=== PATIENT | male | born 1940 | race Caucasian/White ===

== ENCOUNTER 2019-07-19 08:23 | Outpatient (CLI) | payer MEDICARE, SELFPAY ==
--- NOTE | 2019-07-19 | USCV_ITS ---
Bertram Moiz Age: 79 Gender: M : 1940 Exam Date: 07/19/2019 08:42 Ordering Phys: Dominic Stone PA-C Technologist: Yoli Kate Exam Location: [facility] – [place] Indication: D-DIMER ELEVATION HISTORY: D-dimer elevation. PROCEDURES: Examined were the right greater saphenous, common femoral, femoral, profunda, popliteal, posterior tibial veins, and peroneal trunk.. FINDINGS: All veins examined appear free of thrombus. No filling defects on color Doppler flow analysis. Vein flow and caliber vary with respiration. Increase in venous flow with augmentation. All veins appear compressible.. CONCLUSIONS No evidence of right lower extremity DVT. Rishi Reeves MD (Electronically Signed) Final Date: 19 July 2019 10:46 S
== END 2019-07-19 08:24 | disposition home or self-care (01) ==
LOC: RADWPI 08:31
PROVIDERS: PCP Physician Assistant; Visit Provider Physician Assistant
DX: R79.89 Other specified abnormal findings of blood chemistry (principal)
CPT/HCPCS: 93971

== ENCOUNTER 2021-07-01 19:31 | Emergency (ER) | payer MEDICARE, SELFPAY ==
[2021-07-01 19:33] VITALS: BP 205/108; PULSE 78; RESP 25; O2SAT 97
--- NOTE | 2021-07-01 19:35 | CTR_ITS ---
PROCEDURE INFORMATION: Exam: CT Head Without Contrast Exam date and time: 07/01/2021 7:59 PM Age: 80 years old Clinical indication: Altered mental status/memory loss; Additional info: AMS TECHNIQUE: Imaging protocol: Computed tomography of the head without contrast. Radiation optimization: All CT scans at this facility use at least one of these dose optimization techniques: automated exposure control; mA and/or kV adjustment per patient size (includes targeted exams where dose is matched to clinical indication); or iterative reconstruction. COMPARISON: CT head wo con* [id number] 01/09/2018 10:46 AM RADIATION DOSE METRICS: Total DLP (mGy-cm): 763.68 FINDINGS: Brain: There is hypoattenuation in the periventricular and subcortical white matter consistent with chronic microvascular disease. There is no significant mass effect or midline shift. There is no acute intracranial hemorrhage. Cerebral ventricles: There is no significant ventricular dilation. The basal cisterns are unremarkable. Paranasal sinuses: The paranasal sinuses are clear. Mastoid air cells: The mastoid air cells are clear. Bones/joints: The calvarium is intact. Soft tissues: The visible extracranial soft tissues are unremarkable. CT/CT head wo con* [id number] IMPRESSION: No acute intracranial abnormality.
--- NOTE | 2021-07-01 19:35 | XRR_ITS ---
PROCEDURE INFORMATION: Exam: XR Chest Exam date and time: 07/01/2021 7:52 PM Age: 80 years old Clinical indication: Shortness of breath; Additional info: AMS TECHNIQUE: Imaging protocol: XR of the chest. Views: 1 view. COMPARISON: CR Chest 1 [place] [id number] 01/09/2018 10:47 AM FINDINGS: Lungs: Unremarkable. No consolidation. Pleural spaces: Unremarkable. No pleural effusion. No pneumothorax. Heart/Mediastinum: Cardiomegaly. Bones/joints: Unremarkable. XR/XR chest 1V portable [id number] IMPRESSION: 1. Negative for infiltrate. 2. Cardiomegaly.
--- NOTE | 2021-07-01 19:37 | ECG_ITS ---
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 Measurements Intervals [place] Rate: 64 P: 58 IA: 161 QRS: -6 QRSD: 100 T: 56 QT: 436 QTc: 452 Interpretive Statements SINUS RHYTHM NONSPECIFIC T-WAVE ABNORMALITY No previous ECG available for comparison Electronically Signed On 07-02-2021 17:05:14 CDT by Oneal Alcala M.D. [id number]
--- NOTE | 2021-07-01 19:41 | W.ED.AMS ---
HPI - Altered Mental Status General: Chief Complaint: Altered Mental Status Stated Complaint: ALOC Time Seen by Provider: 07/01/21 19:32 Source: patient and EMS Mode of arrival: EMS Limitations: altered mental status History of Present Illness: 80-year-old male who is here by EMS. Family found him down on the ground roughly 30 minutes ago completely altered. Unsure when his last known normal was. He does have a history of diabetes and MS states his original sugar was 65 they gave him 25 IV a glucose is 120 and he is coming around more. He is able answer my questions he knows know the year and his name still is quite lethargic and has some confusion no definite focal deficits noted. No known recent illness. Review of Systems General: Reports: ROS unobtainable due to mental status Physical Exam Const: EXAM LIMITATIONS: altered mental status GENERAL APPEARANCE: lethargic and ill appearing ORIENTATION/CONSCIOUSNESS: Yes lethargic HENMT: COMMON NORMALS: normocephalic and atraumatic HEAD & SCALP: normocephalic and atraumatic FACE & SINUS: normal facial exam Eye: COMMON NORMALS: Equal, round and reactive pupils present and EOMs intact bilaterally PUPIL: Yes Equal, round and reactive pupils present Neck/C-Spine: COMMON NORMALS: full ROM and supple Chest: COMMONS NORMALS: normal inspection of the chest and normal palpation of entire chest wall Resp: COMMON NORMALS: normal respiratory effort Cardio: COMMON NORMALS: regular rate and regular rhythm RATE: regular rate RHYTHM: regular rhythm GI: COMMON NORMALS: Normal to inspection, nondistended, normoactive bowel sounds present, Soft to palpation and non-tender PALPATION: Yes Soft to palpation Extremity: COMMON NORMALS: normal to inspection and full ROM Neuro: SENSORIUM/ORIENTATION: Yes lethargic CRANIAL NERVES: Yes CN normal except as noted Psych: APPEARANCE: Yes disheveled OTHER: confusion Skin: COMMON NORMALS: no rashes or lesions noted GENERAL SKIN EXAM: no rashes or lesions noted Course Vital Signs: Vital signs: Vital Signs Temperature 97.4 F L 07/01/21 20:30 Pulse Rate 78 07/01/21 20:30 Respiratory Rate 16 07/01/21 20:30 Blood Pressure 166/88 07/01/21 20:30 Pulse Oximetry 97 07/01/21 20:30 MDM - Altered Mental Status Medical Decision Making Patient presents with altered mental status likely from hypoglycemia he is now awake alert ambulatory answering all his questions appropriately. He had been requesting the nurse to be able to go home. I went spoke to him at length informed his lactate was a little elevated would like to rehydrate him and recheck it. He states he feels completely fine he wants to go home right now. He does have decision-making capacity we will discharge him at his wishes inform if he has any worsening he is return immediately I informed him he should stay with someone tonight and watch his glucose levels. He understands agrees to plan. Lab Data : 07/01/21 20:16 07/01/21 20:16 Radiology Impressions Chest X-Ray 07/01/21 19:35 IMPRESSION: 1. Negative for infiltrate. 2. Cardiomegaly. Head CT 07/01/21 19:35 IMPRESSION: No acute intracranial abnormality. Cervical Spine CT 07/01/21 19:54 IMPRESSION: No acute fracture. Laboratory Results WBC 11.8 10^3/uL (4.0-10.0) H 07/01/21 20:16 RBC 4.39 10^6/uL (4.1-5.3) 07/01/21 20:16 Hgb 12.4 g/dL (11.7-16.6) 07/01/21 20:16 Hct 38.5 % (42.0-52.0) L 07/01/21 20:16 MCV 87.7 fl (80-94) 07/01/21 20:16 MCH 28.2 pg (28.0-34.0) 07/01/21 20:16 MCHC 32.2 g/dL (30.0-36.0) 07/01/21 20:16 RDW 13.2 % (12.1-15.1) 07/01/21 20:16 Plt Count 185 10^3/cmm (130-400) 07/01/21 20:16 MPV 11.3 fL (7.4-10.4) H 07/01/21 20:16 Neut % (Auto) 83.3 % 07/01/21 20:16 Lymph % (Auto) 8.4 % 07/01/21 20:16 [place] % (Auto) 7.1 % 07/01/21 20:16 Eos % (Auto) 0.5 % 07/01/21 20:16 Baso % (Auto) 0.3 % 07/01/21 20:16 Neut # (Auto) 9.84 10^3/uL (1.8-7.7) H 07/01/21 20:16 Lymph # (Auto) 1.0 10^3/uL (0.8-4.8) 07/01/21 20:16 [place] # (Auto) 0.8 10^3/uL (0.2-0.9) 07/01/21 20:16 Eos # (Auto) 0.1 10^3/uL (0.0-0.8) 07/01/21 20:16 Baso # (Auto) 0.0 10^3/uL (0.0-0.1) 07/01/21 20:16 Nucleated RBC % (auto) 0 % 07/01/21 20:16 Nucleated RBCs # 0.0 /100WBC 07/01/21 20:16 PT 12.70 SECONDS (12.1-14.9) 07/01/21 20:50 INR 0.93 (0.8-1.2) 07/01/21 20:50 Specimen Type Arterial 07/01/21 19:45 Sample Site Brachial, left 07/01/21 19:45 ABG pH 7.31 (7.35-7.45) L 07/01/21 19:45 ABG pCO2 42.4 mmHg (35-45) 07/01/21 19:45 ABG pO2 94.8 mmHg (80.0-100.0) 07/01/21 19:45 ABG HCO3 21.2 mmol/L (22-26) L 07/01/21 19:45 ABG Base Excess -4.9 mmol/L (-2.0-2.0) L 07/01/21 19:45 [place] Test N/a 07/01/21 19:45 Hematocrit 38.7 % (42-52) L 07/01/21 19:45 O2 Delivery Device None 07/01/21 19:45 FiO2 21.0 % 07/01/21 19:45 Nurse Intern ID Jayleen 07/01/21 19:45 Sodium 137 mmol/L (136-145) 07/01/21 20:16 Potassium 3.6 mmol/L (3.5-5.1) 07/01/21 20:16 Chloride 100 mmol/L (98-107) 07/01/21 20:16 Carbon Dioxide 22 mmol/L (22-29) 07/01/21 20:16 Anion Gap 18.6 (5-19) 07/01/21 20:16 BUN 21 mg/dL (8-23) 07/01/21 20:16 Creatinine 1.1 mg/dL (0.7-1.2) 07/01/21 20:16 GFR Calculation Not Reportable 07/01/21 20:16 Glucose 86 mg/dL (65-115) 07/01/21 20:16 POC Glucose 94 mg/dL (70-110) 07/01/21 20:14 Calculated Osmolality 286 mOsm/kg (285-295) 07/01/21 20:16 Lactate 4.7 mmol/L (0.5-2.2) H* 07/01/21 20:16 Calcium 10.0 mg/dL (8.5-10.5) 07/01/21 20:16 Magnesium 1.7 mg/dL (1.7-2.3) 07/01/21 20:16 Total Bilirubin 0.2 mg/dL (0.15-1.2) 07/01/21 20:16 AST 29 U/L (0-40) 07/01/21 20:16 ALT 27 U/L (0-41) 07/01/21 20:16 Alkaline Phosphatase 71 IU/L (40-130) 07/01/21 20:16 Creatine Kinase 262 U/L (39-308) 07/01/21 20:16 Troponin T Baseline 12 ng/L (0-15) 07/01/21 20:16 Total Protein 7.2 g/dL (6.6-8.7) 07/01/21 20:16 Albumin 4.5 g/dL (3.5-5.2) 07/01/21 20:16 Globulin 2.7 g/dL (1.3-4.6) 07/01/21 20:16 Lipase 10 U/L (13-60) L 07/01/21 20:16 TSH 3.26 uIU/mL (0.27-4.20) 07/01/21 20:16 Urine Color Yellow (Yellow) 07/01/21 21:01 Urine Appearance Clear (CLEAR) 07/01/21 21:01 Urine pH 5 (5-7) 07/01/21 21:01 Ur Specific [place] 1.015 (1.005-1.030) 07/01/21 21:01 Urine Protein Neg (Negative) 07/01/21 21:01 Urine Glucose (UA) 2+ (Normal) H 07/01/21 21:01 Urine Ketones Negative (Negative) 07/01/21 21:01 Urine Blood Neg (Negative) 07/01/21 21:01 Urine Nitrate Negative (Negative) 07/01/21 21:01 Urine Bilirubin Neg (Negative) 07/01/21 21:01 Urine Urobilinogen Neg mg/dL (Negative) 07/01/21 21:01 Ur Leukocyte Esterase Negative (Negative) 07/01/21 21:01 EKG Data EKG 1: I personally reviewed and interpreted this EKG as follows: EKG interpretation date: 07/01/21 EKG interpretation time: 20:24 Interpretation: nsr hr [address] or t wave abnormalities qrs 100 qtc 446 Discharge Plan Discharge Patient Disposition: Home Clinical Impression: Altered mental status, Hypoglycemia Condition: Stable Prescriptions: No Action Lantus U-100 Insulin 100 unit/mL Solution 23 unit SUBCUT BEDTIME 0RF aspirin 325 mg Tablet 325 mg PO DAILY 0RF lisinopril 20 mg Tablet 20 mg PO BID 0RF levothyroxine 50 mcg Tablet 50 mcg PO DAILY 0RF Humalog U-100 Insulin 100 unit/mL Solution See Rx Instructions .ROUTE .COMPLEX 0RF Rx Instructions: PER SLIDING SCALE sertraline 50 mg Tablet 50 mg PO DAILY 0RF Discharge Orders: Discharge ED (Routine); Ordered 07/01/21 Ordered By: Rusty Valdez Referrals: Dominic Stone PA-C [Primary Care Provider] - 1-3 days Discharge Diet: Advance as tolerated Discharge Activity: Resume usual activity Patient Instructions: Hypoglycemia Coding Level of Care Code ED Dexigraph Operator for Chg Fwd Exam Comprehensive
--- NOTE | 2021-07-01 19:54 | CTR_ITS ---
PROCEDURE INFORMATION: Exam: CT Cervical Spine Without Contrast Exam date and time: 07/01/2021 8:02 PM Age: 80 years old Clinical indication: Weakness; Patient HX: Alt loc/ low blood sugar found on the floor; Additional info: Fall TECHNIQUE: Imaging protocol: Computed tomography images of the cervical spine without contrast. Radiation optimization: All CT scans at this facility use at least one of these dose optimization techniques: automated exposure control; mA and/or kV adjustment per patient size (includes targeted exams where dose is matched to clinical indication); or iterative reconstruction. COMPARISON: CT head wo con* [id number] 07/01/2021 7:59 PM RADIATION DOSE METRICS: Total DLP (mGy-cm): 701.8 FINDINGS: Bones/joints: Spinal alignment is normal. Vertebral body height is maintained. No acute fracture. Discs/Spinal canal/Neural foramina: There is moderate degenerative disc disease in the cervical spine. There is mild multilevel spinal canal stenosis. Lungs: Lung apices are clear. Vasculature: There is moderate atherosclerotic disease at the right carotid bulb. Soft tissues: Soft tissues in the neck and thoracic inlet are unremarkable. CT/CT cervical spin wo con* [id number] IMPRESSION: No acute fracture.
[2021-07-01 19:55] LABS: ABG PCO2 42.4 mmHg (35-45); ABG PH Result 7.31 (7.35-7.45); Arterial Blood Gas Hematocrit 38.7 % (42-52); Base Excess ABG -4.9 mmol/L (-2.0-2.0); Blood Gas Sample Site Brachial, left; Blood Gas Sample Type Arterial; HCO3 ABG 21.2 mmol/L (22-26); PO2 ABG 94.8 mmHg (80.0-100.0)
[2021-07-01 20:17] LABS: Glucose Point of Care 94 mg/dL (70-110)
[2021-07-01 20:25] LABS: Basophils % 0.3 %; Eosinophils # 0.1 10^3/uL (0.0-0.8); Eosinophils % 0.5 %; Hematocrit 38.5 % (42.0-52.0); Hemoglobin 12.4 g/dL (11.7-16.6); Lymphocytes % 8.4 %; Mean Corpuscular HGB Conc 32.2 g/dL (30.0-36.0); Mean Corpuscular Hemoglobin 28.2 pg (28.0-34.0); Mean Corpuscular Volume 87.7 fl (80-94); Mean Platelet Volume 11.3 fL (7.4-10.4); Monocytes # 0.8 10^3/uL (0.2-0.9); Monocytes % 7.1 %; Neutrophils # 9.84 10^3/uL (1.8-7.7); Neutrophils % 83.3 %; Nucleated Red Blood Cells % 0 %; Platelet Count 185 10^3/cmm (130-400); Red Blood Count 4.39 10^6/uL (4.1-5.3); Red Cell Distribution Width 13.2 % (12.1-15.1); White Blood Count 11.8 10^3/uL (4.0-10.0)
[2021-07-01 20:30] VITALS: BP 166/88; PULSE 78; RESP 16; TEMP 36.3; O2SAT 97
[2021-07-01 20:40] LABS: Troponin(5th) Baseline 12 ng/L (0-15)
[2021-07-01 20:41] LABS: Lactate (Lactic Acid level) 4.7 mmol/L (0.5-2.2)
[2021-07-01 20:44] LABS: Slide Review Slide Review Perform
[2021-07-01 20:49] LABS: Alanine Aminotransferase 27 U/L (0-41); Albumin Level 4.5 g/dL (3.5-5.2); Alkaline Phosphatase 71 IU/L (40-130); Anion Gap 18.6 (5-19); Aspartate Amino Transferase 29 U/L (0-40); Blood Urea Nitrogen 21 mg/dL (8-23); Carbon Dioxide 22 mmol/L (22-29); Chloride 100 mmol/L (98-107); Creatine Phosphokinase 262 U/L (39-308); Globulin 2.7 g/dL (1.3-4.6); Glucose 86 mg/dL (65-115); Lipase 10 U/L (13-60); Magnesium 1.7 mg/dL (1.7-2.3); Osmolality Calculated 286 mOsm/kg (285-295); Potassium 3.6 mmol/L (3.5-5.1); Sodium 137 mmol/L (136-145); Thyroid Stimulating Hormone 3.26 uIU/mL (0.27-4.20); Total Bilirubin 0.2 mg/dL (0.15-1.2); Total Protein 7.2 g/dL (6.6-8.7)
[2021-07-01 21:04] LABS: Add Urine Microscopic? NO; Charge for UA Resulting for Rev
[2021-07-01 21:05] LABS: Specific Gravity, Urine 1.015 (1.005-1.030); Urine Appearance Clear (CLEAR); Urine Color Yellow (Yellow); pH Urine 5 (5-7)
[2021-07-01 21:06] LABS: Bilirubin Urine Neg (Negative); Blood Urine Neg (Negative); Glucose Urine UA 2+ (Normal); Ketones Urine Negative (Negative); Leukocyte Esterase Urine Negative (Negative); Nitrate Urine Negative (Negative); Protein Urine Neg (Negative); Urobilinogen Urine Neg (Negative)
[2021-07-01 21:06] LABS: INR 0.93 (0.8-1.2)
[2021-07-01 21:42] VITALS: BP 166/91; PULSE 78; RESP 16; TEMP 36.3; O2SAT 98
== END 2021-07-01 21:48 | disposition home or self-care (01) ==
PROVIDERS: Emergency Provider Emergency Medicine; PCP Physician Assistant
DX: E11.649 Type 2 diabetes mellitus with hypoglycemia without coma (principal); Z79.4 Long term (current) use of insulin
CPT/HCPCS: 36416; 36600; 70450; 71045; 72125; 80053; 81003; 82550; 82803; 82962; 83605; 83690; 83735; 84443; 84484; 85025; 85610; 93005; 99283

== ENCOUNTER 2021-08-21 08:43 | Emergency (ER) | payer MEDICARE, SELFPAY ==
[2021-08-21 08:47] VITALS: BP 224/132; PULSE 80; RESP 20; TEMP 36.7; O2SAT 98; BMI 26.6
--- NOTE | 2021-08-21 08:49 | CT_ITS ---
WS: [id number] CT LUMBAR SPINE TECHNIQUE: Noncontrast CT of the lumbar spine with coronal and sagittal reformatted images. CLINICAL INFORMATION: back pain COMPARISON: None. DLP: 4042.[address] scans at [facility] use at least one of these dose optimization techniques: automated e xposure control; mA and/or kV adjustment per patient size (includes targeted exams where dose is matc hed to clinical indication); or iterative reconstruction. FINDINGS: Mild lumbar curve. No acute compression. Slight anterolisthesis L2 on L3. Benign hemangioma S1 verteb ral body. Slight retrolisthesis L5 on S1 with slight vacuum disc phenomenon. L1-L2: Slight anterolisthesis L1 on L2. Mild disc bulging with slight effacement of ventral thecal sa c. Mild RIGHT foraminal narrowing. L2-L3: Slight anterolisthesis L2 on L3. Mild disc bulging with osteophytic ridging. Shallow central p rotrusion. Moderate central canal stenosis. Impingement traversing L3 nerve roots bilaterally. Modera te facet arthropathy. Mild bilateral foraminal narrowing. L3-L4: Mild disc bulging with a shallow central disc protrusion. Mild central canal stenosis. Moderat e facet arthropathy with ligamentum flavum hypertrophy. Impingement traversing LEFT L4 nerve root. M oderate LEFT foraminal narrowing with suspected LEFT lateral foraminal protrusion. RIGHT foramen is p atent. L4-L5: Mild disc bulging and osteophytic ridging. Severe central canal stenosis. Moderate facet arthr opathy and ligamentum flavum hypertrophy. Impingement traversing L5 nerve roots. Mild LEFT greater th an RIGHT foraminal narrowing. L5-S1: Mild disc bulging with osteophytic ridging. Impingement traversing RIGHT S1 nerve root. Modera te facet arthropathy with ligamentum flavum hypertrophy. Mild RIGHT foraminal narrowing. LEFT foramen is patent. Lung bases are well aerated. CT/CT lumbar spine wo con* [id number] IMPRESSION: 1. Mild lumbar curve. No acute compression. Slight anterolisthesis of L1 on L2 and L2 on L3. 2. Severe central canal stenosis L4-L5 due to disc bulging with facet arthropa thy ligamentum flavum hypertrophy. Moderate to severe central canal stenosis L 2-L3. Recommend further evaluation MRI for better anatomic detail. 3. Mild central canal stenosis L3-L4. 4. Disc osteophytic ridging L5-S1 impinges the traversing RIGHT S1 nerve root in the subarticular recess. 5. Moderate LEFT L3-L4 foraminal narrowing impinges the exiting LEFT L3 nerve root due to a prominent LEFT lateral foraminal protrusion. Recommend further ev aluation with MRI lumbar spine.
[2021-08-21] MEDS: diazePAM 2 mg Tablet PO (08:57)
[2021-08-21] MEDS: HYDROcodone-acetaminophen 5-325 mg Tablet 1 TAB PO ×2 (08:57→12:55)
[2021-08-21 09:09] LABS: Basophils # 0.1 10^3/uL (0.0-0.1); Basophils % 0.7 %; Eosinophils % 0.5 %; Hematocrit 36.2 % (42.0-52.0); Hemoglobin 11.8 g/dL (11.7-16.6); Lymphocytes # 1.2 10^3/uL (0.8-4.8); Lymphocytes % 16.4 %; Mean Corpuscular HGB Conc 32.6 g/dL (30.0-36.0); Mean Corpuscular Hemoglobin 28.3 pg (28.0-34.0); Mean Corpuscular Volume 86.8 fl (80-94); Mean Platelet Volume 11.2 fL (7.4-10.4); Monocytes # 0.3 10^3/uL (0.2-0.9); Monocytes % 4.3 %; Neutrophils # 5.84 10^3/uL (1.8-7.7); Neutrophils % 77.8 %; Nucleated Red Blood Cells % 0 %; Platelet Count 201 10^3/cmm (130-400); Red Blood Count 4.17 10^6/uL (4.1-5.3); Red Cell Distribution Width 12.9 % (12.1-15.1); White Blood Count 7.5 10^3/uL (4.0-10.0)
[2021-08-21 09:32] LABS: Alanine Aminotransferase 15 U/L (0-41); Albumin Level 4.3 g/dL (3.5-5.2); Alkaline Phosphatase 61 IU/L (40-130); Anion Gap 18.2 (5-19); Aspartate Amino Transferase 19 U/L (0-40); Blood Urea Nitrogen 18 mg/dL (8-23); Calcium 9.4 mg/dL (8.5-10.5); Carbon Dioxide 21 mmol/L (22-29); Chloride 96 mmol/L (98-107); Globulin 3.1 g/dL (1.3-4.6); Glucose 347 mg/dL (65-115); Osmolality Calculated 288 mOsm/kg (285-295); Potassium 4.2 mmol/L (3.5-5.1); Sodium 131 mmol/L (136-145); Total Bilirubin 0.4 mg/dL (0.15-1.2); Total Protein 7.4 g/dL (6.6-8.7)
--- NOTE | 2021-08-21 10:14 | MR_ITS ---
WS: [id number] MRI LUMBAR SPINE NONCONTRAST TECHNIQUE: Sagittal T1, T2 and STIR imaging. Axial T1 and T2 imaging. CLINICAL INFORMATION: numbness COMPARISON: CT August 21, 2021 FINDINGS: Limited protocol performed due to patient pain and motion. Mild lumbar curve. No acute compression. Severe central canal stenosis L2-L3, L4-L5 worse L4-L5 due t o disc bulging with facet arthropathy and ligamentum flavum hypertrophy. LEFT foraminal protrusion L3-L4 impinges the exiting LEFT L3 nerve root laterally. Recommend correlat ion LEFT L3 nerve root symptoms. Severe LEFT foraminal narrowing. Hemangioma S1 and L5 vertebral bodies. Mild central canal stenosis in the cervical spine with slight retrolisthesis C3 on C4. L1-L2: Mild RIGHT greater than LEFT foraminal narrowing. Spinal canal is patent. Mild facet arthropat hy. L2-L3: Mild disc bulging with osteophytic ridging. Moderate facet arthropathy. Moderate to severe pedrito tral canal stenosis with ligamentum flavum hypertrophy. Mild bilateral foraminal narrowing. L3-L4: LEFT lateral foraminal protrusion measuring 7 mm impinges the exiting LEFT L3 nerve root with severe LEFT foraminal narrowing. Recommend correlation LEFT L3 nerve root symptoms. Mild to moderate central canal stenosis at this level. Mild RIGHT foraminal narrowing. L4-L5: Severe central canal stenosis due to disc bulging with facet arthropathy ligamentum flavum hyp ertrophy. Mild bilateral foraminal narrowing. L5-S1: RIGHT eccentric disc osteophyte complex with mild to moderate RIGHT foraminal narrowing. Sligh t impingement traversing RIGHT S1 nerve root in the subarticular recess. Moderate facet arthropathy. Visualized pelvic bony structures: Normal. Paravertebral soft tissues: Normal. MR/MR lumbar spine wo con* [id number] IMPRESSION: Limited protocol performed due to patient pain and motion. 1. Prominent LEFT foraminal protrusion impinges the exiting LEFT L3 nerve root with severe LEFT foraminal narrowing. Correlation LEFT L3 nerve root symptoms. LEFT lateral protrusion measures appro ximately 7 mm. Disc protrusion appears recent. 2.Moderate to severe central canal stenosis L2-L3 and severe central canal sten osis L4-L5 due to mild disc bulging with facet arthropathy and ligamentum flavu m hypertrophy. Mild to moderate central canal stenosis L3-L4. 3.Mild RIGHT L2-L3 foraminal narrowing. Mild bilateral L4-L5 foraminal narrowin g. Mild to moderate RIGHT L5-S1 foraminal narrowing due to RIGHT eccentric disc osteophyte complex. 4.Mild central canal stenosis seen in the mid and lower cervical spine seen on the relief worker imaging. Notified Inocencia Lynch at 08/21/2021 11:50 AM.
[2021-08-21 12:40] LABS: Add Urine Microscopic? NO; Charge for UA Resulting for Rev
[2021-08-21 12:52] LABS: Urine Appearance Clear (CLEAR); Urine Color Yellow (Yellow)
[2021-08-21 12:53] LABS: Bilirubin Urine Neg (Negative); Blood Urine Neg (Negative); Glucose Urine UA Norm (Normal); Ketones Urine Negative (Negative); Leukocyte Esterase Urine Negative (Negative); Nitrate Urine Negative (Negative); Protein Urine Neg (Negative); Specific Gravity, Urine 1.005 (1.005-1.030); Sulfosalicylic Acid Urine Negative (Negative); Urobilinogen Urine Norm (Negative); pH Urine 8 (5-7)
--- NOTE | 2021-08-21 12:57 | PC.NURSE ---
pt refused ns stating that he is, past the time to take my shot referring to insulin. Pt reports that he would like to take it at home to control his blood sugar. informed leonardo Montelongo she verbalized understanding no further orders.
[2021-08-21 14:06] VITALS: BP 182/79; PULSE 87; RESP 21; O2SAT 97
--- NOTE | 2021-08-21 16:01 | W.ED.BACK ---
HPI - Back Pain/Injury General: Chief Complaint: Back Pain/Injury Stated Complaint: BACK PAIN Time Seen by Provider: 08/21/21 08:45 History of Present Illness: 81-year-old male patient presents to the emergency department complaining of sciatica pain. Patient states he has had this issue in the past. Patient denies any new injury or trauma. Patient denies any loss of bowel or bladder. Patient states the pain is gotten significant and he is unable to get comfortable. Patient denies any fever. Patient denies any urinary symptoms. Patient states he has old back injuries that hurts him from time to time. Patient denies any history of aneurysms or IV drug abuse Associated symptoms: Deny abdominal pain, chills, change in bowel habits, difficulty walking, dysuria, fatigue, fever(s), hematuria, nausea, syncope, urinary urgency or vomiting Review of Systems Const: Denies: fever(s), chills, body aches, change in appetite, change in weight, fatigue, malaise or diaphoresis Eyes: Denies: change in vision, blurry vision, blind spots, photophobia, eye discomfort, eye discharge, eye redness, floaters or seeing flashes ENMT: Denies: throat pain, uvular edema, enlarged tonsils, odynophagia, hoarseness, mouth pain, swelling of lips/tongue, oral sores, bleeding gums, dental pain, dry mouth, ear or mastoid pain, ear discharge, change in hearing, tinnitus, disequilibrium, nasal discharge, nasal congestion, post nasal drip or sinus pain Card: Denies: chest pain, palpitations, irregular heart rhythm, edema, swelling of feet/ankles, lightheadedness, syncope, pre-syncope, dyspnea on exertion, orthopnea, leg pain with exertion or acrocyanosis Resp: Denies: dyspnea, productive cough, non-productive cough, wheezing, stridor, pain on inspiration, change in phlegm color, hemoptysis or chest congestion GI: Denies: abdominal pain, nausea, vomiting, hematemesis, dysphagia, diarrhea, constipation, GI cramping, change in bowel habits or rectal pain : Denies: flank pain, dysuria, urinary frequency, urinary urgency, urinary hesitancy or hematuria Musc: Denies: neck pain, extremity pain, extremity swelling, joint pain, joint swelling, joint redness, joint warmth or deformity Skin/Breast: Denies: rash, pruritus, erythema, sores, new lesions, changes in skin color or dry skin Neuro: Denies: headache(s), numbness in extremities, weakness in extremities, sensory changes, lack of coordination, difficulty walking, frequent falls, dizziness, vertigo, confusion, behavioral changes, Slurred speech present, difficulty communicating thoughts or seizure-like activity Psych: Denies: anxiety, depression, suicidal ideation or homicidal ideation Endo: Denies: polyuria, polydipsia, tired all the time, cold intolerance, excessive sweating, flushing, hot flashes or heat intolerance Antwon/Lymph: Denies: easy bruising, easy bleeding, petechiae, purpura, enlarged lymph nodes or tender lymph nodes All/Imm: Denies: urticaria, throat swelling, tongue swelling, facial swelling, acute wheezing or itchy eyes Physical Exam Const: COMMON NORMALS: no acute distress, patient oriented x3, healthy appearing, alert and well nourished GENERAL APPEARANCE: cooperative, comfortable, well kempt and well developed; not ill appearing ORIENTATION/CONSCIOUSNESS: Yes awake, Yes oriented to person, Yes oriented to place and Yes oriented to time HENMT: COMMON NORMALS: normocephalic, atraumatic, hearing grossly normal bilaterally, external ears normal, EAC's normal, TM's normal bilaterally, Normal external nose present, Normal nasal mucous membranes and turbinates present and moist oral mucous membranes HEAD & SCALP: normal to inspection, normocephalic and atraumatic FACE & SINUS: normal facial exam, sinuses nontender and face symmetric NOSE: Normal external nose present, Normal nares present, Normal nasal mucous membranes and turbinates present, No nasal discharge present and Abnormal external nose present EXTERNAL EAR: Yes external ears normal and Yes mastoids normal EXTERNAL AUDITORY CANAL: EAC's normal TYMPANIC MEMBRANE: TM's normal bilaterally MOUTH: Normal oral and palatal mucosa present, lip normal, tongue normal and Normal salivary glands and ducts present THROAT: no uvular edema Eye: COMMON NORMALS: Equal, round and reactive pupils present, EOMs intact bilaterally, conjunctivae normal, no scleral icterus and no papilledema GENERAL EYE: appearance normal, both eyes and all related structures EYELID: eyelids normal CONJUNCTIVA: Yes conjunctivae normal SCLERA: sclerae normal CORNEA: Yes corneas normal PUPIL: Yes Equal, round and reactive pupils present DIRECT OPHTHALMOSCOPY: Yes no papilledema Neck/C-Spine: COMMON NORMALS: full ROM, no lymphadenopathy, supple, no meningeal signs, no JVD and Thyroid normal GENERAL: Yes normal visual inspection and Yes trachea midline THYROID: Thyroid normal CERVICAL SPINE: Yes cervical ROM normal Lymph: LYMPHATIC: no lymphadenopathy noted and no lymphedema noted Chest: COMMONS NORMALS: normal inspection of the chest and normal palpation of entire chest wall Resp: COMMON NORMALS: normal respiratory effort, No retractions, No use of accessory muscles and clear to auscultation bilaterally EFFORT & INSPECTION: Yes able to speak in complete sentences and Yes symmetric chest movement AUSCULTATION: clear to auscultation bilaterally Cardio: COMMON NORMALS: no JVD, regular rate and regular rhythm RATE: regular rate RHYTHM: regular rhythm GI: COMMON NORMALS: Normal to inspection, nondistended, normoactive bowel sounds present, Soft to palpation, non-tender, No hepatosplenomegaly present, no masses and no bruits INSPECTION: Yes normal to inspection AUSCULTATION: Yes normoactive bowel sounds PALPATION: Yes Soft to palpation and Yes No hepatosplenomegaly present PERCUSSION: normal to percussion RECTAL EXAM: Yes deferred : COMMON NORMALS: Yes no CVA tenderness BLADDER/KIDNEY EXAM: Yes no CVA tenderness Back/Pelvis: COMMON NORMALS: no CVA tenderness, thoracic and lumbar spine normal to inspection, thoraco-lumbar ROM normal and straight leg raise negative bilaterally THORACIC SPINE/UPPER BACK: Yes normal to inspection LUMBAR SPINE/LOWER BACK: Yes normal to inspection Extremity: COMMON NORMALS: normal to inspection, full ROM and capillary refill normal GENERAL: Yes normal exam except as noted Neuro: COMMON NORMALS: patient oriented x3, CN's II-XII intact bilaterally, moves all extremities, no focal motor deficits, no sensory deficits noted, deep tendon reflexes 2+ bilaterally and gait normal SENSORIUM/ORIENTATION: Yes alert, Yes oriented to person, Yes oriented to place and Yes oriented to time MENINGEAL SIGNS: Yes no meningeal signs CRANIAL NERVES: Yes CN normal except as noted SPEECH: speech normal GAIT: Yes Normal gait present SENSORY EXAM: Yes extremities MOTOR EXAM: 5/5 motor strength present throughout Psych: COMMON NORMALS: mental status grossly normal, Normal thought process present, cooperative, normal affect, speech normal, activity/motor behavior normal, denies hallucinations, denies homicidal ideation and denies suicidal ideation APPEARANCE: Yes grossly normal and Yes well kempt ATTITUDE: Yes calm ACTIVITY/MOTOR BEHAVIOR: Yes appropriate eye contact SPEECH: Yes normal speech THOUGHT PROCESS: Normal thought process present THOUGHT CONTENT: Yes Normal thought content present ATTENTION/CONCENTRATION: Yes attention grossly intact MEMORY/COGNITION: Yes memory grossly intact INSIGHT: Good insight present (Psych) JUDGEMENT: Good judgement present (Psych) Skin: COMMON NORMALS: no rashes or lesions noted, no wounds, turgor normal, no jaundice, no petechiae and no mottling GENERAL SKIN EXAM: no rashes or lesions noted and turgor normal Course Vital Signs: Vital signs: Vital Signs Temperature 98.0 F 08/21/21 08:47 Pulse Rate 87 08/21/21 14:06 Respiratory Rate 21 H 08/21/21 14:06 Blood Pressure 182/79 08/21/21 14:06 Pulse Oximetry 97 08/21/21 14:06 MDM - Back Pain/Injury Medical Decision Making Patient is well-appearing nontoxic and in no acute distress. 81-year-old male patient presents to the emergency department complaining of sciatica pain. Patient states he has had this issue in the past. Patient denies any new injury or trauma. Patient denies any loss of bowel or bladder. Patient states the pain is gotten significant and he is unable to get comfortable. Patient denies any fever. Patient denies any urinary symptoms. Patient states he has old back injuries that hurts him from time to time. Patient denies any history of aneurysms or IV drug abuse Based on patient CT finding I will go ahead and MRI at this time. Based on patient's MR I findings I will go ahead and refer him to Dr. Jack I will start patient on steroids and gabapentin at this time. Patient has an elevated blood glucose patient is refusing IV fluids for his sodium and blood sugars patient states he is overdue for his insulin and will take his insulin when he gets home. Patient states his blood sugars normally run high but he controls with his insulin. I advised patient that he needs to check his blood sugars frequently and adjust his insulin as needed as the steroids will increase his blood sugars. I also advised patient he needs to have his sodium levels rechecked and he needs to increase his sodium intake over the next few days. I discussed with patient return precautions patient to follow-up with Dr. Kinney Labs : 08/21/21 09:01 08/21/21 09:01 Radiology Impressions Lumbar Spine CT 08/21/21 08:49 IMPRESSION: 1. Mild lumbar curve. No acute compression. Slight anterolisthesis of L1 on L2 and L2 on L3. 2. Severe central canal stenosis L4-L5 due to disc bulging with facet arthropathy ligamentum flavum hypertrophy. Moderate to severe central canal stenosis L2-L3. Recommend further evaluation MRI for better anatomic detail. 3. Mild central canal stenosis L3-L4. 4. Disc osteophytic ridging L5-S1 impinges the traversing RIGHT S1 nerve root in the subarticular recess. 5. Moderate LEFT L3-L4 foraminal narrowing impinges the exiting LEFT L3 nerve root due to a prominent LEFT lateral foraminal protrusion. Recommend further evaluation with MRI lumbar spine. Lumbar Spine MRI 08/21/21 10:14 IMPRESSION: Limited protocol performed due to patient pain and motion. 1. Prominent LEFT foraminal protrusion impinges the exiting LEFT L3 nerve root with severe LEFT foraminal narrowing. Correlation LEFT L3 nerve root symptoms. LEFT lateral protrusion measures approximately 7 mm. Disc protrusion appears recent. 2.Moderate to severe central canal stenosis L2-L3 and severe central canal stenosis L4-L5 due to mild disc bulging with facet arthropathy and ligamentum flavum hypertrophy. Mild to moderate central canal stenosis L3-L4. 3.Mild RIGHT L2-L3 foraminal narrowing. Mild bilateral L4-L5 foraminal narrowing. Mild to moderate RIGHT L5-S1 foraminal narrowing due to RIGHT eccentric disc osteophyte complex. 4.Mild central canal stenosis seen in the mid and lower cervical spine seen on the lead java developer architect imaging. Notified Inocencia Lynch at 08/21/2021 11:50 AM. Laboratory Results WBC 7.5 10^3/uL (4.0-10.0) 08/21/21 09:01 RBC 4.17 10^6/uL (4.1-5.3) 08/21/21 09:01 Hgb 11.8 g/dL (11.7-16.6) 08/21/21 09:01 Hct 36.2 % (42.0-52.0) L 08/21/21 09:01 MCV 86.8 fl (80-94) 08/21/21 09:01 MCH 28.3 pg (28.0-34.0) 08/21/21 09:01 MCHC 32.6 g/dL (30.0-36.0) 08/21/21 09:01 RDW 12.9 % (12.1-15.1) 08/21/21 09:01 Plt Count 201 10^3/cmm (130-400) 08/21/21 09:01 MPV 11.2 fL (7.4-10.4) H 08/21/21 09:01 Neut % (Auto) 77.8 % 08/21/21 09:01 Lymph % (Auto) 16.4 % 08/21/21 09:01 [place] % (Auto) 4.3 % 08/21/21 09:01 Eos % (Auto) 0.5 % 08/21/21 09:01 Baso % (Auto) 0.7 % 08/21/21 09:01 Neut # (Auto) 5.84 10^3/uL (1.8-7.7) 08/21/21 09:01 Lymph # (Auto) 1.2 10^3/uL (0.8-4.8) 08/21/21 09:01 [place] # (Auto) 0.3 10^3/uL (0.2-0.9) 08/21/21 09:01 Eos # (Auto) 0.0 10^3/uL (0.0-0.8) 08/21/21 09:01 Baso # (Auto) 0.1 10^3/uL (0.0-0.1) 08/21/21 09:01 Nucleated RBC % (auto) 0 % 08/21/21 09: Nucleated RBCs # 0.0 /100WBC 08/21/21 09:01 Sodium 131 mmol/L (136-145) L 08/21/21 09:01 Potassium 4.2 mmol/L (3.5-5.1) 08/21/21 09:01 Chloride 96 mmol/L (98-107) L 08/21/21 09:01 Carbon Dioxide 21 mmol/L (22-29) L 08/21/21 09:01 Anion Gap 18.2 (5-19) 08/21/21 09:01 BUN 18 mg/dL (8-23) 08/21/21 09:01 Creatinine 1.0 mg/dL (0.7-1.2) 08/21/21 09:01 GFR Calculation Not Reportable 08/21/21 09:01 Glucose 347 mg/dL (65-115) H 08/21/21 09:01 Calculated Osmolality 288 mOsm/kg (285-295) 08/21/21 09:01 Calcium 9.4 mg/dL (8.5-10.5) 08/21/21 09:01 Total Bilirubin 0.4 mg/dL (0.15-1.2) 08/21/21 09:01 AST 19 U/L (0-40) 08/21/21 09:01 ALT 15 U/L (0-41) 08/21/21 09:01 Alkaline Phosphatase 61 IU/L (40-130) 08/21/21 09:01 Total Protein 7.4 g/dL (6.6-8.7) 08/21/21 09:01 Albumin 4.3 g/dL (3.5-5.2) 08/21/21 09:01 Globulin 3.1 g/dL (1.3-4.6) 08/21/21 09:01 Urine Color Yellow (Yellow) 08/21/21 12:30 Urine Appearance Clear (CLEAR) 08/21/21 12:30 Urine pH 8 (5-7) H 08/21/21 12:30 Ur Specific [place] 1.005 (1.005-1.030) 08/21/21 12:30 Urine Protein Neg (Negative) 08/21/21 12:30 Urine Glucose (UA) Norm (Normal) 08/21/21 12:30 Urine Ketones Negative (Negative) 08/21/21 12:30 Urine Blood Neg (Negative) 08/21/21 12:30 Urine Nitrate Negative (Negative) 08/21/21 12:30 Urine Bilirubin Neg (Negative) 08/21/21 12:30 Prot Sulfosalicylic Acd Negative (Negative) 08/21/21 12:30 Urine Urobilinogen Norm mg/dL (Negative) 08/21/21 12:30 Ur Leukocyte Esterase Negative (Negative) 08/21/21 12:30 Discharge Plan Discharge Clinical Impression: Chronic lumbar radiculopathy Condition: Stable Prescriptions: New prednisone 20 mg tablet 20 mg PO BID 5 Days Qty: 10 0RF gabapentin 100 mg capsule 100 mg PO Q8H PRN (Reason: pain) 10 Days Qty: 30 0RF No Action Aspir-Low 81 mg Tablet,Delayed Release (Dr/Ec) 81 mg PO DAILY 0RF Men 50 Plus Multivitamin 300-600-300 mcg Tablet 1 tab PO DAILY 0RF Lantus U-100 Insulin 100 unit/mL Solution 23 unit SUBCUT BEDTIME 0RF lisinopril 20 mg Tablet 20 mg PO BID 0RF levothyroxine 50 mcg Tablet 50 mcg PO DAILY 0RF insulin lispro [Humalog U-100 Insulin] 100 unit/mL Solution See Rx Instructions .ROUTE .COMPLEX 0RF Rx Instructions: PER SLIDING SCALE sertraline 50 mg Tablet 50 mg PO DAILY 0RF Discharge Orders: Discharge ED (Routine); Ordered 08/21/21 Ordered By: Inocencia Lynch Referrals: Clif Huerta DO [Physician] - Dominic Stone PA-C [Primary Care Provider] - Discharge Diet: Advance as tolerated Discharge Activity: Limit activity as instructed Patient Instructions: Low Back Strain (ED) Activity Restrictions/Additional Instructions: Return to ER with loss of bowel or bladder, fever, worsening of pain Please take meds as directed Please heck your blood glucose as directed and adjust your insulin as the steroids will raise your blood glucose Coding Level of Care Code ED Occupational Health Physiotherapist for Vidhya Liu
--- NOTE | 2021-08-22 09:36 | DCPLANNER ---
Addendum entered by Earline Ruiz 08/28/21 15:39: Patient had a follow up appointment scheduled for 08.26.21 at ortho - patient did attend appointment. Original Note: manager heavy duty had message to schedule a follow up appointment for patient with ortho. manager heavy duty sent patients information to the front office staff at ortho. Patients information will be printed and reviewed. Clinic will call patient with appointment information.
== END 2021-08-21 14:03 ==
PROVIDERS: Emergency Provider Registered Nurse; PCP Physician Assistant
DX: M54.16 Radiculopathy, lumbar region (principal); Z79.82 Long term (current) use of aspirin; Z79.4 Long term (current) use of insulin
CPT/HCPCS: 72131; 72148; 80053; 81003; 85025; 99283

== ENCOUNTER → 2021-08-26 15:22 | Outpatient (BNVA) | payer MEDICARE, SELFPAY | PROVIDERS: PCP Physician Assistant; Referring Provider Registered Nurse; Visit Provider Physician Assistant | DX: M48.062 Spinal stenosis, lumbar region with neurogenic claudication (principal) | CPT/HCPCS: 72110; 99204 ==

== ENCOUNTER 2021-09-12 05:34 | Day surgery (SDC) | payer MEDICARE, SELFPAY ==
[2021-09-05 10:42] VITALS: BMI 27.4
--- NOTE | 2021-09-05 16:15 | ANES.PREANE2 ---
Pre-Anesthetic Assessment Height/Weight: Height 1.65 m Weight 74.843 kg Preop Diagnosis: spinal stenosis, neurogenic claudication Operation Date: 09/12/21 07:00 Proposed Procedures p Lumbar Spine Decompression OPEN L2/3 16894 L3/4 84072 L4/5 89730 M48.062(Not Applicable) - Clif Huerta DO Familial anesthetic complications: None Was Beta Walter taken within 24 hours: N/A Was Clonidine taken within 24 hours: N/A Social No alcohol and No tobacco Exam alert, oriented x 3, clear to auscultation bilaterally and regular rate & rhythm Airway Submandibular: within normal limits Cervical ROM: within normal limits Mallampati: Class II Dentition: full History/ROS No significant complaints Pulmonary None reported CV/HEM Hypertension METS = 4 until the last six weeks at which point patient's back pain acutely decompensated None reported Hepatic None reported GI None reported Metabolic Diabetes Mellitus and None reported Musc/skel None reported Neuropsych None reported Anesthetic Plan ASA status: 2 Anesthesia: Anesthesia Evaluation and General Other: We discussed risk and benefits of general anesthesia including PONV, sore throat (sometimes severe), corneal abrasion, positioning and peripheral nerve injuries, life threatening allergic reaction, post operative ICU admission requiring prolonged intubation, stroke, heart attack, , and rare incidences of recall. Patient consents to proceed with general anesthesia. Risk of > 500 ml blood loss (7ml/kg in children): No Medications/Allergies Home Medications Medication Instructions Recorded Confirmed Last Taken Type insulin glargine 100 unit/mL 23 unit SUBCUT BEDTIME 07/01/21 09/05/21 08/20/21 History subcutaneous solution (Lantus U-100 Insulin) insulin lispro 100 unit/mL See Rx Instructions .ROUTE .COMPLEX 07/01/21 09/05/21 08/21/21 History subcutaneous solution (Humalog U-100 Insulin) levothyroxine 50 mcg tablet 50 mcg PO DAILY 07/01/21 09/05/21 08/21/21 History lisinopril 20 mg tablet 20 mg PO BID 07/01/21 09/05/21 08/21/21 History sertraline 50 mg tablet 50 mg PO DAILY 07/01/21 09/05/21 08/21/21 History aspirin 81 mg tablet,delayed 81 mg PO DAILY 08/21/21 09/05/21 08/21/21 History release zqgivycp-elb-eemsr acid 300 1 tab PO DAILY 08/21/21 09/05/21 08/21/21 History mcg-lycopene 600 mcg-lutein 300 mcg tablet (Men 50 Plus Multivitamin) cyclobenzaprine 10 mg tablet 10 mg PO TID PRN 10 Days #30 tab 09/02/21 09/05/21 Unknown Rx hydrocodone 5 mg-acetaminophen 325 1 tab PO .q 4-6 PRN 5 Days #30 tab 09/02/21 09/05/21 Unknown Rx mg tablet amlodipine 5 mg tablet 5 mg PO DAILY 09/05/21 09/05/21 Unknown History Allergies Allergy/AdvReac Type Severity Reaction Status Date / Time No Known Allergies Allergy Verified 08/26/21 15:35 PFS Anesthesia Social History Smoking and tobacco status: never smoked Data Anesthesia Cardiac Studies: No Data to Display
[2021-09-12] VITALS (10 sets, daily range): BP systolic 86–192; BP diastolic 56–91; PULSE 69–82; RESP 14–21; TEMP 36.1–36.3; O2SAT 90–98
--- NOTE | 2021-09-12 | SCC_ITS ---
Procedure done: 1. L2/3 laminectomy with partial facetectomy 2. L3-4 laminectomy with partial facetectomy 3. L4-5 laminectomy with partial facetectomy 7.4 seconds of fluoroscopic guidance, for a cumulative dose of 1.69 mGy, was provided to Dr. Huerta by the radiology department. C-arm images of the lumbar spine were saved for the patient's permanent record. [facility], [place]
--- NOTE | 2021-09-12 | XR_ITS ---
WS: [id number] Exam: XR lumbar spine 1V [id number] Date/Time of Exam: 09/12/2021 12:00 AM Reason For Exam: left sided L2-5 decompression Three anterior posterior intraoperative C-arm images of the lower lumbar spine are submitted for eval uation. These images demonstrate localization instruments superimposing the L2-3, L3-4 and L4-5 disc levels. One image also depicts surgical retractors in place overlying the lower lumbar spine. No other signi ficant finding on this limited series.
[2021-09-12 06:08] LABS: Glucose Point of Care 194 mg/dL (70-110)
[2021-09-12] MEDS: sodium chloride 0.9% 1,000 ML 30 ML IV (06:26)
--- NOTE | 2021-09-12 06:43 | W.PM.OPSUD ---
Surgery/Procedure H&P Update DATE OF PROCEDURE: September 12, 2021 DATE H&P PERFORMED: 08/26/21 H&P UPDATE INFORMATION: I have reviewed H&P completed within last 30 days, I have examined patient prior to procedure and No changes to prior documentation PREOP DIAGNOSIS: Lumbar stenosis w neurogenic Claudication PLANNED PROCEDURE: Operation Date: 09/12/21 07:00 Proposed Procedures p Lumbar Spine Decompression OPEN L2/3 55117 L3/4 65386 L4/5 63176 M48.062(Not Applicable) - Clif Huerta DO
--- NOTE | 2021-09-12 07:02 | P.ANESUD_ITS ---
Pre-Anesthetic Update Pre-Anesthetic Assessment: Date of Surgery/Procedure: 09/12/21 Preop Janee gnosis: Lumbar stenosis w neurogenic Claudication Proposed Procedure: Operation Date: 09/12/21 07:00 Proposed Procedures p Lumbar Spine Decompression OPEN L2/3 39342 L3/4 94924 L4/5 76265 M48.062(Not Applicable) - Clif Huerta, DO Any changes to Pre-Anesthetic Assessment?: No Last Intake: Intake Last Liquid Date 09/11/21 Last Liquid Time 17:30 Last Solid Date 09/11/21 Last Solid Time 17:30 Labs Last 48hrs: > 8 hrs Vitals: Temperature Source Temporal Artery S can 09/12/21 05:55 Pulse Rate 82 09/12/21 05:55 Pulse Rhythm 09/12/21 06:04 Respiratory Rate 18 09/12/21 05:55 Blood Pressure 192/91 09/12/21 05:55 Blood Pressure Leah n 124 09/12/21 05:55 Pulse Oximetry 97 09/12/21 05:55 Oxygen Delivery Me thod 09/12/21 06:04 Exam: Pre-Anes Outpt Exam: alert, oriented x 3, clear to auscultation bilaterally and regular rate & rhythm Cardiac Studies: No Data to Display
--- NOTE | 2021-09-12 09:14 | PM.OP ---
Operative Report Date of procedure: September 12, 2021 Pre-op diagnosis: Preop Diagnosis Lumbar stenosis w neurogenic Claudication Post-op diagnosis: same Procedure done: 1. L2/3 laminectomy with partial facetectomy 2. L3-4 laminectomy with partial facetectomy 3. L4-5 laminectomy with partial facetectomy Surgeon: Clif Huerta Estimated blood loss (mL): 300 Procedure: 1. L2/3 laminectomy with partial facetectomy 2. L3-4 laminectomy with partial facetectomy 3. L4-5 laminectomy with partial facetectomy Patient is brought to the operative suite. After undergoing anesthesia they are placed in the prone position. All areas of impingement are well padded. Patient is then prepped and draped in the normal sterile fashion. A skin incision is made over the L2-L5 level. This is confirmed under c-arm guidance. A down to the L2-3 L3-4 and L4-5 levels. This was done with a Nicolas and Bovie subperiosteal dissection out to the facet joints of the L2-3 L3-4 and L4-5 on the left side. The cerebellar retractor was then placed. A bovie is used to clear the soft tissue off the lamina and the L 2/3 facet joint. A high speed tulio is then used to perform the laminectomy and take down the medial aspect of the L 2/3 facet joint. A kerrison rongeure was then used to take down the remaining lamina and smooth the edge of the laminectomy up to the point where the ligamentum flavum attaches. Attention was then brought to the medial aspect of the facet joint. The remaining medial aspect of the superior and inferior aspect of the facet joint were taken down with the kerrison from the pedicle of L2 to L 3. The facet joint had significant hypertrophy. Attention was then brought to the Ligamentum Flavum. The ligament was taken down from the lamina of L2 to L3 and out medially to the remaining facet joint. The ligament was thick. The dura was then exposed. The dura was in good repair. The L2 nerve was then traced with a curette out the L2/3 foramen and found to be adequately decompressed. The L3 nerve was traced with a curette around the L3 pedicle. The lateral recess was opened with a kerrison helping to further decompress the L3 nerve. A bovie is used to clear the soft tissue off the lamina and the L 3/4 facet joint. A high speed tulio is then used to perform the laminectomy and take down the medial aspect of the L 3/4 facet joint. A kerrison rongeure was then used to take down the remaining lamina and smooth the edge of the laminectomy up to the point where the ligamentum flavum attaches. Attention was then brought to the medial aspect of the facet joint. The remaining medial aspect of the superior and inferior aspect of the facet joint were taken down with the kerrison from the pedicle of L3 to L 4. The facet joint had significant hypertrophy. Attention was then brought to the Ligamentum Flavum. The ligament was taken down from the lamina of L3 to L4 and out medially to the remaining facet joint. The ligament was thick. The dura was then exposed. The dura was in good repair. The L3 nerve was then traced with a curette out the L3/4 foramen and found to be adequately decompressed. The L4 nerve was traced with a curette around the L4 pedicle. The lateral recess was opened with a kerrison helping to further decompress the L4 nerve. A bovie is used to clear the soft tissue off the lamina and the L 4/5 facet joint. A high speed tulio is then used to perform the laminectomy and take down the medial aspect of the L 4/5 facet joint. A kerrison rongeure was then used to take down the remaining lamina and smooth the edge of the laminectomy up to the point where the ligamentum flavum attaches. Attention was then brought to the medial aspect of the facet joint. The remaining medial aspect of the superior and inferior aspect of the facet joint were taken down with the kerrison from the pedicle of L4 to L 5. The facet joint had significant hypertrophy. Attention was then brought to the Ligamentum Flavum. The ligament was taken down from the lamina of L4 to L5 and out medially to the remaining facet joint. The ligament was thick. The dura was then exposed. The dura was in good repair. The L4 nerve was then traced with a curette out the L4/5 foramen and found to be adequately decompressed. The L5 nerve was traced with a curette around the L5 pedicle. The lateral recess was opened with a kerrison helping to further decompress the L5 nerve. Wound is then irrigated copiously with saline and surgiflo is used to stop any bleeding. The tubular retractor is removed and the wound is closed with vicryl and monocryl suture. Glue is then used to protect the wound. A sterile dressing is then placed. Patient was then placed in the supine position and transferred to the PACU in stable condition.
[2021-09-12 10:04] LABS: Glucose Point of Care 242 mg/dL (70-110)
[2021-09-12] MEDS: HYDROcodone-acetaminophen 10-325 mg Tablet 1 TAB PO (10:18)
--- NOTE | 2021-09-12 16:27 | ANE.PACU2 ---
Inpatient post-anesthesia follow up: Airway intact: Yes Vital signs: Temperature 97.0 F Pulse Rate 70 Respiratory Rate 16 Blood Pressure 142/64 Pulse Oximetry 95 Oxygen Delivery Me thod Room Air Oxygen Flow Rate 4.5 Fraction of Inspir ed Oxygen Hydration adequate: Yes Nausea and vomiting: No Pain level: 1 Mental status: Baseline
== END 2021-09-12 10:32 | disposition home or self-care (01) ==
PROVIDERS: PCP Family Medicine; Visit Provider Orthopaedic Surgery
PROC: (CPT 63005; principal; 2021-09-12 07:00)
DX: M48.062 Spinal stenosis, lumbar region with neurogenic claudication (principal); I10 Essential (primary) hypertension; E11.9 Type 2 diabetes mellitus without complications; Z79.4 Long term (current) use of insulin; Z79.82 Long term (current) use of aspirin
CPT/HCPCS: 63047; 63048 ×2; 36416; 72020; 76000; 82962; J1100; J2405; J2704; J2710; J3010; J3490; J7030

== ENCOUNTER → 2021-09-25 13:03 | Outpatient (BNVA) | payer MEDICARE, SELFPAY | PROVIDERS: PCP Family Medicine; Visit Provider Orthopaedic Surgery | DX: Z47.89 Encounter for other orthopedic aftercare (principal); Z98.890 Other specified postprocedural states | CPT/HCPCS: 72100; 99024 ==

== ENCOUNTER → 2021-10-23 10:42 | Outpatient (BNVA) | payer MEDICARE, SELFPAY | PROVIDERS: PCP Family Medicine; Visit Provider Orthopaedic Surgery | DX: Z47.89 Encounter for other orthopedic aftercare (principal); Z98.890 Other specified postprocedural states | CPT/HCPCS: 99024 ==

== ENCOUNTER → 2021-12-04 09:06 | Outpatient (BNVA) | payer MEDICARE, SELFPAY | PROVIDERS: PCP Family Medicine; Visit Provider Orthopaedic Surgery | DX: Z47.89 Encounter for other orthopedic aftercare (principal) | CPT/HCPCS: 99024 ==

== ENCOUNTER → 2022-03-05 09:57 | Outpatient (BNVA) | payer MEDICARE, SELFPAY | PROVIDERS: PCP Family Medicine; Visit Provider Orthopaedic Surgery | DX: M17.0 Bilateral primary osteoarthritis of knee (principal); Z47.89 Encounter for other orthopedic aftercare; Z98.1 Arthrodesis status | CPT/HCPCS: 73560; 73565; 99024 ==